=== PATIENT | male | born 1990 | race Caucasian/White ===

== ENCOUNTER 2016-04-13 01:49 | Emergency (ER) | payer SELFPAY ==
[~2016-04-13] VITALS: Ht 167.6 cm; Wt 103.5 kg
[~2016-04-13 01:49] MED LIST: NO MEDS TAKEN
[2016-04-13 01:54] VITALS: Ht 167.6 cm; Wt 103.5 kg
--- NOTE | 2016-04-13 03:36 | RADRPT ---
PROCEDURE: Chest. CLINICAL INDICATION: Chest pain. TECHNIQUE: Single frontal view of the chest was obtained. COMPARISON: None. FINDINGS: The cardiac silhouette is within normal limits. The aortic arch is unremarkable. There is no focal consolidation, vascular congestion or pleural effusion. There is no pneumothorax. IMPRESSION: No evidence for active cardiopulmonary disease. .Jesus Ivory MD, MD Date Time Electronically viewed and signed by .Jesus Ivory MD, on 04/13/2016 03:36 .T/
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
[2016-04-13] MEDS ORDERED: HYDR-906 PO (04:30)
[2016-04-13] MEDS ORDERED: ACET500C5 PO (04:30)
[2016-04-13] MEDS ORDERED: CYCL-319 PO (04:30)
[2016-04-13 04:45] VITALS: BP 132/70; PULSE 74
== END 2016-04-13 05:12 | disposition home or self-care (01) ==
LOC: FTE 01:49
DX: S16.1XXA Strain of muscle, fascia and tendon at neck level, initial encounter (principal); S29.001A Unspecified injury of muscle and tendon of front wall of thorax, initial encounter; S06.0X0A Concussion without loss of consciousness, initial encounter; R07.89 Other chest pain; V49.40XA Driver injured in collision with unspecified motor vehicles in traffic accident, initial encounter
CPT/HCPCS: 70450; 71010; 72125